=== PATIENT | female | born 1955 | race Caucasian/White ===

== ENCOUNTER 2020-03-10 08:13 | Outpatient (CLI) | payer OTHER, SELFPAY ==
--- NOTE | ~2020-03-10 | MM_ITS ---
EXAMINATION: MM screening [facility] BI w mark HISTORY: Screening mammogram TECHNIQUE: Craniocaudal and mediolateral oblique 3-D tomosynthesis images were obtained and synthetic 2-D images were generated. CAD analysis was submitted and interpreted. COMPARISON: Comparison to multiple prior studies sequentially, with oldest reviewed study dated 02/26. BREAST PARENCHYMAL COMPOSITION: There are scattered areas of fibroglandular density. FINDINGS: There are benign breast calcifications. There is no evidence of suspicious mass, calcificat ion, or architectural distortion to suggest malignancy in either breast. There has been no suspicious interval change. IMPRESSION: 1. No mammographic evidence of malignancy. 2. Recommend routine screening mammography in one year. BI-RADS Category 2: Benign finding(s). Reviewed, dictated and finalized at location A.
== END 2020-03-10 08:14 | disposition home or self-care (01) ==
LOC: ANHIMG 08:16
PROVIDERS: PCP Family Medicine; Visit Provider Family Medicine
DX: Z12.31 Encounter for screening mammogram for malignant neoplasm of breast (principal)
CPT/HCPCS: 77063; 77067

== ENCOUNTER 2020-08-16 11:04 | Outpatient (NON) | payer OTHER, SELFPAY ==
[2020-08-16 23:58] LABS: SARS-CoV-2 RNA PCR Negative
== END 2020-08-16 11:05 ==
LOC: ANHCOVIDDT 11:04
PROVIDERS: PCP Family Medicine; Visit Provider Family Medicine
DX: R51.9 Headache, unspecified (principal); R07.89 Other chest pain; Z20.828 Contact with and (suspected) exposure to other viral communicable diseases
CPT/HCPCS: 87635; C9803; U0003

== ENCOUNTER 2021-03-15 07:16 | Outpatient (CLI) | payer MEDICARE, OTHER, SELFPAY ==
--- NOTE | ~2021-03-15 | MM_ITS ---
EXAMINATION: MM screening [facility] BI w mark HISTORY: Screening mammogram TECHNIQUE: Craniocaudal and mediolateral oblique 3-D tomosynthesis images were obtained and synthetic 2-D images were generated. CAD analysis was submitted and interpreted. COMPARISON: 03/10/2020, 01/30/2019, 03/22/2017 BREAST PARENCHYMAL COMPOSITION: The breasts are heterogeneously dense, which may obscure small masses . FINDINGS: There is no evidence of suspicious mass, calcification, or architectural distortion to sugg est malignancy in either breast. There has been no suspicious interval change. IMPRESSION: 1. No mammographic evidence of malignancy. 2. Recommend routine screening mammography in one year. BI-RADS Category 1: Negative Reviewed, dictated and finalized at location A.
== END 2021-03-15 07:17 | disposition home or self-care (01) ==
LOC: ANHIMG 07:25
PROVIDERS: PCP Family Medicine; Visit Provider Family Medicine
DX: Z12.31 Encounter for screening mammogram for malignant neoplasm of breast (principal)
CPT/HCPCS: 77063; 77067

== ENCOUNTER 2021-05-13 12:41 | Outpatient (CLI) | payer MEDICARE, OTHER, SELFPAY ==
--- NOTE | ~2021-05-13 | DEXA_ITS ---
Bone Density Report Name: Angella Concepcion Age: 66 Sex: Female Ethnicity: White Date of : 1955 Indication: postmenopausal; parental hip fracture; hysterectomy; Referring Provider: Kathi Batres Study: Bone densitometry was performed. Exam Date: May 13, 2021 Accession number: [id number] Bone Density: Region BMD T-score Z-score Classification AP Spine (L1-L4) 1.007 -0.4 1.4 Normal Femoral Neck (Left) 0.801 -0.4 1.1 Normal Total Hip (Left) 0.976 0.3 1.5 Normal Total Hip Bilateral Avg 0.970 0.3 1.5 Normal Femoral Neck (Right) 0.862 0.1 1.6 Normal Total Hip (Right) 0.963 0.2 1.4 Normal World Health Organization criteria for BMD impression classify patients as: Normal (T-score at or above -1.0), Osteopenia (T-score between -1.0 and -2.5), or Osteoporosis (T-score at or below -2.5). 10-year Fracture Risk: FRAX not reported because: All T-scores for Spine Total, Hip Total, Femoral Neck at or above -1.0 Previous Exams: Region Exam Age BMD T-score BMD Change BMD Change Date g/cm2 vs Baseline vs Previous AP Spine(L1-L4) 05/13/2021 66 1.007 -0.4 -0.165(-14.1%) -0.025(-2.4%)* 04/29/2015 60 1.032 -0.1 -0.139(-11.9%) -0.070(-6.3%)# 02/27/2012 56 1.102 0.5 -0.070(-5.9%)# -0.078(-6.6%)# 11/30/2008 53 1.180 1.2 0.008(0.7%) 0.008(0.7%) 08/17/2006 51 1.172 1.1 Total Hip(Left) 05/13/2021 66 0.976 0.3 -0.074(-7.1%)# -0.021(-2.1%) 04/29/2015 60 0.997 0.5 -0.054(-5.1%)# -0.040(-3.9%)# 02/27/2012 56 1.037 0.8 -0.013(-1.3%)# -0.027(-2.5%)# 11/30/2008 53 1.064 1.0 0.014(1.3%) 0.014(1.3%) 08/17/2006 51 1.051 0.9 Total Hip(Right) 05/13/2021 66 0.963 0.2 -0.056(-5.5%)# -0.001(-0.1%) 04/29/2015 60 0.964 0.2 -0.055(-5.4%)# -0.047(-4.7%)# 02/27/2012 56 1.011 0.6 -0.008(-0.8%)# -0.036(-3.4%)# 11/30/2008 53 1.046 0.9 0.028(2.7%)* 0.028(2.7%)* 08/17/2006 51 1.019 0.6 *Denotes significance at 95% confidence level, LSC for AP Spine = 0.022 g/cm2, LSC for Total Hip = 0.027 g/cm2 Clinical Information Provided by Patient: Parent has had a hip fracture Has used the following medications: Calcium Has the following medical conditions: Hysterectomy Patient maximum height was 62 Menopause Age: 50 Drinks caffeinated beverages Onset of menses at age 13 Number of children 0 Impression: The patient has normal bone mass. The patient has risk factors
== END 2021-05-13 12:42 | disposition home or self-care (01) ==
LOC: ANHIMG 12:43
PROVIDERS: PCP Family Medicine; Visit Provider Physician Assistant
DX: Z78.0 Asymptomatic menopausal state (principal)
CPT/HCPCS: 77080

== ENCOUNTER 2022-03-17 09:09 | Outpatient (CLI) | payer MEDICARE, OTHER, SELFPAY ==
--- NOTE | ~2022-03-17 | MM_ITS ---
EXAMINATION: MM screening [facility] HISTORY: Screening TECHNIQUE: Craniocaudal and mediolateral oblique 3-D tomosynthesis images were obtained and synthetic 2-D images were generated. CAD analysis was submitted and interpreted. COMPARISON: Comparison to multiple prior studies sequentially, with oldest reviewed study dated 03/02. BREAST PARENCHYMAL COMPOSITION: There are scattered areas of fibroglandular density. FINDINGS: There is no evidence of suspicious mass, calcification, or architectural distortion to sugg est malignancy in either breast. There has been no suspicious interval change. IMPRESSION: 1. No mammographic evidence of malignancy. 2. Recommend routine screening mammography in one year. BI-RADS Category 1: Negative Reviewed, dictated and finalized at location A.
== END 2022-03-17 09:10 | disposition home or self-care (01) ==
LOC: ANHIMG 09:12
PROVIDERS: PCP Family Medicine; Visit Provider Family Medicine
DX: Z12.31 Encounter for screening mammogram for malignant neoplasm of breast (principal)
CPT/HCPCS: 77063; 77067

== ENCOUNTER 2022-08-15 07:32 | Outpatient (CLI) | payer MEDICARE, OTHER, SELFPAY ==
[2022-08-15 08:19] LABS: Alanine Aminotransferase 18 U/L (6-35); Albumin Level 4.2 g/dL (3.5-5.1); Alkaline Phosphatase 74 U/L (38-126); Anion Gap 6 mmol/L (8-16); Aspartate Amino Transferase 21 U/L (14-36); Bilirubin,Total 0.4 mg/dL (0.2-1.3); Blood Urea Nitrogen 13 mg/dL (7-17); Calcium 8.6 mg/dL (8.4-10.2); Carbon Dioxide 30 mmol/L (22-30); Chloride 105 mmol/L (98-107); Cholesterol 173 mg/dL (0-200); Estimated Glomerular Filt Rate > 60; Glucose 83 mg/dL (65-110); HDL Direct 43 mg/dL; Sodium 141 mmol/L (137-145); Triglycerides 147 mg/dL (<150)
[2022-08-15 08:29] LABS: LDL Cholesterol Direct 90 mg/dL
[2022-08-15 08:40] LABS: Vitamin D 25 Hydroxy 47.4 ng/mL
== END 2022-08-15 07:33 | disposition home or self-care (01) ==
LOC: ANHLAB 07:34
PROVIDERS: PCP Family Medicine; Visit Provider Family Medicine
DX: E78.5 Hyperlipidemia, unspecified (principal); Z79.899 Other long term (current) drug therapy; Z13.21 Encounter for screening for nutritional disorder
CPT/HCPCS: 36415; 80053; 80061; 82306

== ENCOUNTER 2023-03-19 08:44 | Outpatient (CLI) | payer MEDICARE, SELFPAY ==
--- NOTE | ~2023-03-19 | MM_ITS ---
EXAMINATION: MM screening [facility] w [facility] HISTORY: Screening mammogram TECHNIQUE: Craniocaudal and mediolateral oblique 3-D tomosynthesis images were obtained and synthetic 2-D images were generated. CAD analysis was submitted and interpreted. COMPARISON: I03/17/2022, 03/15/2021, 03/10/2020 bilateral screening mammogram examinations BREAST PARENCHYMAL COMPOSITION: The breasts are heterogeneously dense, which may obscure small masses . FINDINGS: There is no evidence of suspicious mass, calcification, or architectural distortion to sugg est malignancy in either breast. There has been no suspicious interval change. IMPRESSION: 1. No mammographic evidence of malignancy. 2. Recommend routine screening mammography in one year. BI-RADS Category 1: Negative Reviewed, dictated and finalized at location C.
== END 2023-03-19 08:45 | disposition home or self-care (01) ==
LOC: ANHIMG 08:46
PROVIDERS: PCP Family Medicine; Visit Provider Family Medicine
DX: Z12.31 Encounter for screening mammogram for malignant neoplasm of breast (principal)
CPT/HCPCS: 77063; 77067

== ENCOUNTER 2023-10-17 14:15 | Outpatient (CLI) | payer MEDICARE, SELFPAY ==
[2023-10-17 16:10] LABS: Influenza A QL RT-PCR Negative (Negative); Influenza B QL RT-PCR Negative (Negative); RSV RNA, RT-PCR Negative (Negative); SARS-CoV-2 RNA PCR Positive (Negative)
== END 2023-10-17 14:16 | disposition home or self-care (01) ==
LOC: ANHGOSHLAB 14:16
PROVIDERS: PCP Family Medicine; Visit Provider Nurse Practitioner
DX: U07.1 COVID-19 (principal); R05.9 Cough, unspecified
CPT/HCPCS: 87637

== ENCOUNTER 2024-01-23 06:29 | Day surgery (SDC) | payer MEDICARE, SELFPAY ==
[2024-01-04 12:52] VITALS: BMI 27.5
[2024-01-08 14:02] VITALS: BMI 25.7
[2024-01-23 07:17] VITALS: BP 119/70; PULSE 60; RESP 14; TEMP 36.8; O2SAT 100
--- NOTE | 2024-01-23 07:48 | WPDANESEPPF ---
Anes - Initial Pre Proc Eval Procedure: Operation Date: 01/23/24 08:30 Proposed Procedures p Screening Colonoscopy - Mike Solano MD Date/Time: 01/23/24 07:48 Surgeon: Mike Solano MD Pre Op Diagnosis: Neoplasm Screening Patient Data Age: 68 Gender: F Height: 1.57 m Weight: 63.7 kg Last Vital Signs Temp 36.8 C 01/23/24 07:17 Pulse 60 01/23/24 07:17 Resp 14 01/23/24 07:17 BP 119/70 01/23/24 07:17 Pulse Ox 100 01/23/24 07:17 O2 Del Method Room Air 01/23/24 07:17 Allergies Allergy/AdvReac Type Severity Reaction Status Date / Time amantadine Allergy Unknown Nausea Verified 01/23/24 07:13 Cephalosporins Allergy Unknown joint pain Verified 01/23/24 07:13 and swelling erythromycin base Allergy Unknown Nausea Verified 01/23/24 07:13 naproxen Allergy Unknown Nausea Verified 01/23/24 07:13 Penicillins Allergy Unknown Skin Verified 01/23/24 07:13 Reaction Home Medications Medication Instructions Recorded Confirmed Type calcium carbonate 600 mg-vitamin 1 tablet PO DAILY 09/06/23 01/23/24 History D3 20 mcg (800 unit) chewable tablet (Caltrate 600 plus D) atorvastatin 10 mg tablet 10 mg PO DAILY #90 tabs 10/29/23 01/23/24 Rx omeprazole 20 mg capsule,delayed 20 mg PO DAILY #90 caps 01/03/24 01/23/24 Rx release multivitamin with minerals-folic 1 tablet PO DAILY 01/08/24 01/23/24 History acid 0.4 mg tablet lisinopril 5 mg tablet 5 mg PO DAILY #30 tabs 01/18/24 01/23/24 Rx Patient hx anesthesia problems: none Family hx anesthesia problems: none Results Review: All pre-operative results and documents have been reviewed as part of the pre-operative evaluation. [facility] Past Medical History Medical History Bitten by dog, initial encounter Hepatitis C antibody test negative (06/20/17) History of ectopic (~1986) Mixed hyperlipidemia Puncture wound Surgical History Surgical History H/O: hysterectomy (~2006) Family History Family History Grandparent Diabetes mellitus Hypertension Family history of coronary artery disease Mother Hypertension, Onset Age: 34 Cerebrovascular accident, Onset Age: 34 Father Family history of lung cancer, Onset Age: 61 Social History Social History Smoking status: Never smoker Second hand tobacco smoke exposure: No Alcohol intake: current Alcohol use details: 2 drinks monthly Substance use: never Substance use type: does not use Lack of Transportation: No Lack of Food: Never True Current Housing: I Have Housing Concerned About Future Housing: No Difficulty Paying Gas/Electric Bills: No Difficulty Paying for Meds: No Currently Unemployed: No Education: High School Diploma/GED Difficulty w/ Childcare or Family Care: No Living arrangements: with family Additional living arrangements comments: Occupation/Education: retired Gender identity (if verbalized by the patient): Female Sexual Orientation (if Verbalized by the Patient): Straight or Heterosexual Spiritual care concerns: No Agree to blood products: Yes Anes - Eval Final PreProcedure Day of Procedure 01/23/24 07:48 Patient weight: normal Heart: regular rate and rhythm Lungs: clear to auscultation Airway: Mallampati scale class II Neurological: alert and oriented Last oral intake: >/= 8 hours ASA classification: II Emergent: no Anesthetic plan: proceed Anesthesia type and monitoring: general GIVS and standard monitoring Results Review: All pre-operative results and documents have been reviewed as part of the pre-operative evaluation. Informed Consent: The patient's anesthetic plan and its attendant risks and benefits were discussed with
[2024-01-23] MEDS: LACTATED RINGERS 1,000 ML 150 ML IV CONT (07:56)
--- NOTE | 2024-01-23 08:05 | PM.HPGS ---
History of Present Illness History of Present Illness Consent: Risks, benefits, and alternatives have been discussed and questions answered. Patient agrees to proceed with procedure. Chief complaint: Neoplasm Screening Narrative: Angella Concepcion is a 68 year old female presents for screening colonoscopy. Patient reports denies abdominal pain. She has had no bleeding. Family history is significant both sister and brother have had colon polyps. Patient did have a previous colonoscopy in 2019 that was unremarkable. Review of Systems Review of Systems: All systems reviewed & are unremarkable except as noted in HPI and below PMFSH Past Medical History Medical History Bitten by dog, initial encounter Hepatitis C antibody test negative (06/20/17) History of ectopic (~1986) Mixed hyperlipidemia Puncture wound Surgical History Surgical History H/O: hysterectomy (~2005) Family History Family History Grandparent Diabetes mellitus Hypertension Family history of coronary artery disease Mother Hypertension, Onset Age: 34 Cerebrovascular accident, Onset Age: 34 Father Family history of lung cancer, Onset Age: 61 Social History Social History Smoking status: Never smoker Second hand tobacco smoke exposure: No Alcohol intake: current Alcohol use details: 2 drinks monthly Substance use: never Substance use type: does not use Lack of Transportation: No Lack of Food: Never True Current Housing: I Have Housing Concerned About Future Housing: No Difficulty Paying Gas/Electric Bills: No Difficulty Paying for Meds: No Currently Unemployed: No Education: High School Diploma/GED Difficulty w/ Childcare or Family Care: No Living arrangements: with family Additional living arrangements comments: Occupation/Education: retired Gender identity (if verbalized by the patient): Female Sexual Orientation (if Verbalized by the Patient): Straight or Heterosexual Spiritual care concerns: No Agree to blood products: Yes Meds Home Medications and Allergies Home Medications Medication Instructions Recorded Confirmed Type calcium carbonate 600 mg-vitamin 1 tablet PO DAILY 09/06/23 01/23/24 History D3 20 mcg (800 unit) chewable tablet (Caltrate 600 plus D) atorvastatin 10 mg tablet 10 mg PO DAILY #90 tabs 10/29/23 01/23/24 Rx omeprazole 20 mg capsule,delayed 20 mg PO DAILY #90 caps 01/03/24 01/23/24 Rx release multivitamin with minerals-folic 1 tablet PO DAILY 01/08/24 01/23/24 History acid 0.4 mg tablet lisinopril 5 mg tablet 5 mg PO DAILY #30 tabs 01/18/24 01/23/24 Rx Allergies Allergy/AdvReac Type Severity Reaction Status Date / Time amantadine Allergy Unknown Nausea Verified 01/23/24 07:13 Cephalosporins Allergy Unknown joint pain Verified 01/23/24 07:13 and swelling erythromycin base Allergy Unknown Nausea Verified 01/23/24 07:13 naproxen Allergy Unknown Nausea Verified 01/23/24 07:13 Penicillins Allergy Unknown Skin Verified 01/23/24 07:13 Reaction Vital Signs Vital Signs - 24 hr 01/23/24 07:17 Temperature 98.2 F Pulse Rate 60 Respiratory Rate 14 Blood Pressure 119/70 Pulse Oximetry 100 Oxygen Delivery Room Air Exam Narrative: Physical exam reveals patient to be alert. Vital signs stable. HEENT exam is unremarkable. Patient is anicteric. Lungs are clear to auscultation and percussion. Extra sounds. Abdomen sounds are present soft nontender with no organomegaly. Digital external rectal exam is normal. Assessment and Plan Assessment and plan (1) Screen for colon cancer: Code(s): Z12.11 - Encounter for screening for malignant neoplasm of colon
[2024-01-23 09:04] VITALS: BP 142/77; PULSE 57; RESP 15; O2SAT 100
[2024-01-23 09:14] VITALS: BP 135/84; PULSE 62; RESP 16; O2SAT 100
[2024-01-23 09:24] VITALS: BP 153/80; PULSE 59; RESP 15; O2SAT 100
--- NOTE | 2024-01-23 09:45 | WPDANESPN ---
Anes - Prog Note Post-Op Date/Time: 01/23/24 09:45 Cardiovascular status: normal Respiratory status: normal Airway patency: baseline Mental status: baseline Post-Op hydration status: normal Vital Signs: Last Vital Signs Temp 36.8 C 01/23/24 07:17 Pulse 59 L 01/23/24 09:24 Resp 15 01/23/24 09:24 BP 153/80 H 01/23/24 09:24 Pulse Ox 100 01/23/24 09:24 O2 Del Method Room Air 01/23/24 09:24 Pain Score (VAS): 0 I/O: Intake & Output 01/22/24 01/23/24 01/23/24 23:59 07:59 15:59 Intake Total 400 Balance 400 Patient Feedback: Patient satisfied with anesthetic care.
== END 2024-01-23 09:32 | disposition home or self-care (01) ==
PROVIDERS: PCP Family Medicine; Visit Provider Internal Medicine Gastroenterology
PROC: 0DJD8ZZ Inspection of Lower Intestinal Tract, Via Natural or Artificial Opening Endoscopic (ICD-10-PCS; CPT 45378; principal; 2024-01-23 08:30)
DX: Z12.11 Encounter for screening for malignant neoplasm of colon (principal); K57.30 Diverticulosis of large intestine without perforation or abscess without bleeding; K64.8 Other hemorrhoids
CPT/HCPCS: 45378

== ENCOUNTER 2024-05-07 10:24 | Outpatient (CLI) | payer MEDICARE, SELFPAY | END 2024-05-07 10:25 | PROVIDERS: PCP Family Medicine; Visit Provider Nurse Practitioner | DX: M79.675 Pain in left toe(s) (principal) | CPT/HCPCS: 73630 ==

== ENCOUNTER 2024-05-23 08:36 | Outpatient (CLI) | payer MEDICARE, SELFPAY ==
--- NOTE | ~2024-05-23 | MM_ITS ---
EXAMINATION: MM screening [facility] w [facility] HISTORY: Screening mammogram TECHNIQUE: Craniocaudal and mediolateral oblique 3-D tomosynthesis images were obtained and synthetic 2-D images were generated. CAD analysis was submitted and interpreted. COMPARISON: 03/19/2023, 03/17/2022, 03/15/2021, 03/10/2020 BREAST PARENCHYMAL COMPOSITION:Dense: The breasts are heterogeneously dense, which may obscure small masses. FINDINGS: No suspicious mass, calcification, or architectural distortion are identified in either maximilian ast to suggest malignancy. There has been no suspicious interval change. IMPRESSION: No mammographic evidence of malignancy. Recommend routine screening mammography in one year. BI-RADS Category 1: Negative Reviewed, dictated and finalized at location .
== END 2024-05-23 08:37 | disposition home or self-care (01) ==
LOC: ANHIMG 08:40
PROVIDERS: PCP Family Medicine; Visit Provider Nurse Practitioner
DX: Z12.31 Encounter for screening mammogram for malignant neoplasm of breast (principal)
CPT/HCPCS: 77063; 77067

== ENCOUNTER 2024-06-18 10:21 | Day surgery (SDC) | payer MEDICARE, SELFPAY ==
[2024-05-26 14:06] VITALS: BMI 25.8
[2024-06-03 08:48] VITALS: BMI 25.7
--- NOTE | 2024-06-17 15:37 | WPDANESEPPF ---
Anes - Initial Pre Proc Eval Procedure: Operation Date: 06/18/24 12:00 Proposed Procedures p Esophagogastroduodenoscopy - Mike Solano MD Date/Time: 06/17/24 15:37 Surgeon: Mike Solano MD Pre Op Diagnosis: Dysphagia, Gerd w/o Esophagitis Patient Data Age: 69 Gender: F Height: 1.57 m Weight: 63.8 kg Allergies Allergy/AdvReac Type Severity Reaction Status Date / Time amantadine Allergy Unknown Nausea Verified 06/18/24 10:44 Cephalosporins Allergy Unknown joint pain Verified 06/18/24 10:44 and swelling erythromycin base Allergy Unknown Nausea Verified 06/18/24 10:44 naproxen Allergy Unknown Nausea Verified 06/18/24 10:44 Penicillins Allergy Unknown Skin Verified 06/18/24 10:44 Reaction Home Medications Medication Instructions Recorded Confirmed Type calcium 600 mg (as carbonate)-vit 1 tablet PO DAILY 09/06/23 06/18/24 History D3 20 mcg (800 unit) chewable tablet (Caltrate plus D) multivitamin with minerals-folic 1 tablet PO DAILY 01/08/24 06/18/24 History acid 0.4 mg tablet atorvastatin 10 mg tablet 10 mg PO DAILY #90 tabs 04/21/24 06/18/24 Rx lisinopril 5 mg tablet 5 mg PO DAILY #90 tabs 05/06/24 06/18/24 Rx omeprazole 20 mg capsule,delayed 20 mg PO DAILY #90 caps 05/06/24 06/18/24 Rx release ascorbic acid (vitamin C) 500 mg 500 mg PO DAILY 06/03/24 06/18/24 History tablet Patient hx anesthesia problems: none Family hx anesthesia problems: none Results Review: All pre-operative results and documents have been reviewed as part of the pre-operative evaluation. [facility] Past Medical History Medical History (Updated 06/17/24 @ 15:37 by Ed Devlin DO) Bitten by dog, initial encounter GERD (gastroesophageal reflux disease) Hepatitis C antibody test negative (06/20/17) History of ectopic (~1986) Hypertension Mixed hyperlipidemia PONV (postoperative nausea and vomiting) Puncture wound Surgical History Surgical History H/O: hysterectomy (~2005) Family History Family History Grandparent Diabetes mellitus Hypertension Family history of coronary artery disease Mother Hypertension, Onset Age: 34 Cerebrovascular accident, Onset Age: 34 Father Family history of lung cancer, Onset Age: 61 Social History Social History Smoking status: Never smoker Second hand tobacco smoke exposure: No Alcohol intake: current Alcohol use details: 1 per month Substance use: never Substance use type: does not use Lack of Transportation: No Lack of Food: Never True Current Housing: I Have Housing Concerned About Future Housing: No Difficulty Paying Gas/Electric Bills: No Difficulty Paying for Meds: No Currently Unemployed: No Education: High School Diploma/GED Difficulty w/ Childcare or Family Care: No Living arrangements: with family Additional living arrangements comments: Occupation/Education: retired Gender identity (if verbalized by the patient): Female Sexual Orientation (if Verbalized by the Patient): Straight or Heterosexual Spiritual care concerns: No Agree to blood products: Yes Anes - Eval Final PreProcedure Day of Procedure 06/17/24 15:37 Patient weight: overweight Heart: regular rate and rhythm Lungs: clear to auscultation Airway: Mallampati scale class II Neurological: alert and oriented Last oral intake: >/= 8 hours ASA classification: II Emergent: no Anesthetic plan: proceed Anesthesia type and monitoring: general GIVS and standard monitoring Results Review: All pre-operative results and documents have been reviewed as part of the pre-operative evaluation. Informed Consent: The patient's anesthetic plan and its attendant risks and benefits were discussed with the patient/fami
[2024-06-18 10:48] VITALS: BP 129/72; PULSE 79; RESP 16; TEMP 36.5; O2SAT 100
[2024-06-18] MEDS: LACTATED RINGERS 1,000 ML 150 ML IV CONT (11:01)
--- NOTE | 2024-06-18 11:33 | WPDHPUPDATE1 ---
History and Physical Update Update Date/Time: 06/18/24 11:33 History and Physical has been reviewed, including an updated exam of the patient. There are NO changes in the patient's condition. Risks, benefits, and alternatives have been discussed and questions answered. Patient agrees to proceed with procedure.
[2024-06-18 12:21] VITALS: BP 120/72; PULSE 62; RESP 20; O2SAT 100
[2024-06-18 12:31] VITALS: BP 132/79; PULSE 60; RESP 18; O2SAT 100
[2024-06-18 12:41] VITALS: BP 139/75; PULSE 63; RESP 18; O2SAT 100
--- NOTE | 2024-06-18 12:57 | WPDANESPN ---
Anes - Prog Note Post-Op Date/Time: 06/18/24 12:57 Cardiovascular status: normal Respiratory status: normal Airway patency: baseline Mental status: baseline Post-Op hydration status: normal Vital Signs: Last Vital Signs Temp 36.5 C 06/18/24 10:48 Pulse 63 06/18/24 12:41 Resp 18 06/18/24 12:41 BP 139/75 06/18/24 12:41 Pulse Ox 100 06/18/24 12:41 O2 Del Method Room Air 06/18/24 12:41 Pain Score (VAS): 0 I/O: Intake & Output 06/17/24 06/18/24 06/18/24 23:59 07:59 15:59 Intake Total 500 Balance 500 Post-procedural complaints: none Patient Feedback: Patient satisfied with anesthetic care. Other Findings: Patient vital signs back to baseline. Patient denies nausea and vomiting. Patient's pain under control. Patient OK for discharge.
== END 2024-06-18 12:55 | disposition home or self-care (01) ==
PROVIDERS: PCP Family Medicine; Visit Provider Internal Medicine Gastroenterology
PROC: 0DJ08ZZ Inspection of Upper Intestinal Tract, Via Natural or Artificial Opening Endoscopic (ICD-10-PCS; CPT 43235; principal; 2024-06-18 12:00)
DX: R13.19 Other dysphagia (principal)
CPT/HCPCS: 43450; 43239

== ENCOUNTER 2025-05-25 07:50 | Outpatient (CLI) | payer MEDICARE, SELFPAY ==
--- NOTE | ~2025-05-25 | MM_ITS ---
EXAMINATION: MM screening [facility] HISTORY: Screening TECHNIQUE: Craniocaudal and mediolateral oblique 3-D tomosynthesis images were obtained and synthetic 2-D images were generated. CAD analysis was submitted and interpreted. COMPARISON: 03/17/2022 BREAST PARENCHYMAL COMPOSITION: The breasts are heterogeneously dense, which may obscure small masses. FINDINGS: There is no evidence of suspicious mass, calcification, or architectural distortion to suggest malignancy. There has been no suspicious interval change. IMPRESSION: 1. No mammographic evidence of malignancy. Recommend routine screening mammography in one year. BI-RADS Category 2: Benign finding(s) Reviewed, dictated and finalized at location Q. IMPRESSION: 1. No mammographic evidence of malignancy. Recommend routine screening mammogra phy in one year. BI-RADS Category 2: Benign finding(s)
== END 2025-05-25 07:51 | disposition home or self-care (01) ==
PROVIDERS: PCP Family Medicine; Visit Provider Nurse Practitioner
DX: Z12.31 Encounter for screening mammogram for malignant neoplasm of breast (principal)
CPT/HCPCS: 77063; 77067

== ENCOUNTER 2025-07-13 09:21 | Outpatient (CLI) | payer MEDICARE, SELFPAY ==
--- NOTE | ~2025-07-13 | DEXA_ITS ---
Bone Density Report Name: OSITO CHANG Age: 70 Sex: Female Ethnicity: White Date of : 1955 Indication: postmenopausal; screening for osteoporosis; hysterectomy; Referring Provider: MAICOL RICCI Study: Bone densitometry was performed. Exam Date: July 13, 2025 Accession number: [id number] Bone Density: Region BMD T-score Z-score Classification AP Spine(L1-L4) 0.954 -0.8 1.2 Normal Femoral Neck (Left) 0.764 -0.8 1.0 Normal Total Hip (Left) 0.975 0.3 1.7 Normal Femoral Neck (Right) 0.788 -0.6 1.2 Normal Total Hip (Right) 0.953 0.1 1.6 Normal Total Hip Mean 0.964 0.2 1.7 Normal World Health Organization criteria for BMD impression classify patients as: Normal (T-score at or above -1.0), Osteopenia (T-score between -1.0 and -2.5), or Osteoporosis (T-score at or below -2.5). 10-year Fracture Risk: FRAX not reported because: All T-scores for Spine Total, Hip Total, Femoral Neck at or above -1.0 Previous Exams: Region Exam Age BMD T-score BMD Change BMD Change Date g/cm2 vs Baseline vs Previous AP Spine (L1-L4) 07/13/2025 70 0.954 -0.8 -0.148 (-13.4% -0.053 (-5.3%) 05/13/2021 66 1.007 -0.4 -0.095 (-8.6%) -0.025 (-2.4%) 04/29/2015 60 1.032 -0.1 -0.070 (-6.3%) -0.070 (-6.3%) 02/27/2012 56 1.102 0.5 Total Hip(Left) 07/13/2025 70 0.975 0.3 -0.063 (-6.0%) -0.002 (-0.2%) 05/13/2021 66 0.976 0.3 -0.061 (-5.9%) -0.021 (-2.1%) 04/29/2015 60 0.997 0.5 -0.040 (-3.9%) -0.040 (-3.9%) 02/27/2012 56 1.037 0.8 Total Hip(Right) 07/13/2025 70 0.953 0.1 -0.057 (-5.7%) -0.009 (-1.0%) 05/13/2021 66 0.963 0.2 -0.048 (-4.7%) -0.001 (-0.1%) 04/29/2015 60 0.964 0.2 -0.047 (-4.7%) -0.047 (-4.7%) 02/27/2012 56 1.011 0.6 *Denotes significance at 95% confidence level, LSC for AP Spine = 0.022 g/cm2, LSC for Total Hip = 0.027 g/cm2 # Denotes dissimilar scan types or analysis methods Clinical Information Provided by Patient: Has used the following medications: Vitamin D, Calcium Has the following medical conditions: Hysterectomy Patient maximum height was 62.0 Menopause Age: 50 No regular weight bearing exercise Does not regularly consume dairy products Drinks caffeinated beverages Onset of menses at age 13 Number of children 0 Impression: The patient has normal bone mass. The BMD for the AP Spine (L1-L4) decreased, changing by -5.3% since the last DXA exam. Discussion: BONE DENSITY IS ABOVE THE MINIMUM DESIRABLE LEVEL AT ALL SKELETAL SITES TESTED. This patient?s bone mineral density is above the minimum desirable level (T-score -1.0 or better) at all sites measured. The patient should follow a healthful lifestyle (good nutrition with adequate calcium and vitamin D, and appropriate weight-bearing exercise). Follow-Up: Consider repeating this study in 3 to 4 years to reassess this patient's status, or sooner if there is some new clinical indication. Reported by: COURTNEY on 07/13/2025 9:57:00 AM. Reviewed, dictated and finalized at location A.
== END 2025-07-13 09:22 | disposition home or self-care (01) ==
LOC: ANHFOHIMG 09:22
PROVIDERS: PCP Family Medicine; Visit Provider Family Medicine
DX: M85.88 Other specified disorders of bone density and structure, other site (principal)
CPT/HCPCS: 77080

== ENCOUNTER 2025-08-25 11:42 | Outpatient (CLI) | payer MEDICARE, SELFPAY ==
--- NOTE | ~2025-08-25 | XR_ITS ---
EXAMINATION: XR abdomen/kub 1V, 08/25/2025 11:58 EDGE SAWYER HISTORY: R10.9 - Unspecified abdominal pain COMPARISON: No comparisons available. Technique: 3 view. Findings: Bowel gas pattern unremarkable. No obstruction. No free air. No abnormal calcifications No acute osseous abnormality. Impression: 1. No acute abnormality. Reviewed, dictated and finalized at location P. SAWYER Impression: 1. No acute abnormality.
== END 2025-08-25 11:43 | disposition home or self-care (01) ==
PROVIDERS: PCP Family Medicine; Visit Provider Family Medicine
DX: R10.9 Unspecified abdominal pain (principal)
CPT/HCPCS: 74018